=== PATIENT | female | born 1975 | race Caucasian/White ===

== ENCOUNTER 2016-06-27 12:12 | Emergency (ER) | payer OTHER ==
[~2016-06-27] VITALS: Ht 157.5 cm; Wt 70.8 kg
[~2016-06-27 12:12] MED LIST: COZAAR25 MG PO; FERROUS SULFAT325 MG PO; IBUPROFEN600 M1 PO; MOTRIN800 MG PO; ORETIC25 MG PO; TAMOXIFEN CITRA20 MG PO; VICODIN 5/500 M1 TAB PO; ZOCOR20 MG PO
[2016-06-27 12:58] VITALS: BP 112/71
--- NOTE | 2016-06-27 15:11 | NUR ---
Patient ambulated to bed 08.
--- NOTE | 2016-06-27 15:13 | NUR ---
PATIENT PRESENTS TO ED DUE TO DIZZINESS AND LEFT UPPER BACK PAIN X4 DAYS--INCREASED FATIGUE, NAUSEA/VOMITING HX BREAST,LOWER BACK CA-HX LEFT PARTIAL MASTECTOMY,CHEMO EVERY MONTH.DENIES DIARRHEA. SKIN IS PINK/WARM/DRY; AAOX4 WITH EVEN AND STEADY GAIT; LUNGS CLEAR BL; HR EVEN AND REGULAR; PT DENIES ANY FEVER, CP, SOB, OR COUGH AT THIS TIME; PATIENT STATES PAIN OF 8/10 AT THIS TIME,BACK PAIN; PATIENT POSITIONED FOR COMFORT; HOB ELEVATED; BEDRAILS UP X2; BED DOWN. ER MD MADE AWARE OF PT STATUS.
--- NOTE | 2016-06-27 15:26 | NUR ---
NOTED PT WITH RIGHT CHEST SIMI CATH
--- NOTE | 2016-06-27 15:41 | NUR ---
Dr. Tuttle evaluating patient at bedside.
[2016-06-27] MEDS ORDERED: IBUPROFEN 800 MG TAB PO ONE (15:50)
[2016-06-27] MEDS ORDERED: NACL 0.9% 1,000 ML IV ONE ×2 (15:50→18:10)
[2016-06-27] MEDS ORDERED: ONDANSETRON 4 MG/2 ML VIAL IVP ONE (15:50)
--- NOTE | 2016-06-27 16:21 | NUR ---
XRAY AT BEDSIDE
--- NOTE | 2016-06-27 16:25 | NUR ---
PT AAO, IVF ONGOING VIA PERIPHERAL LINE, SKIN WARM TO TOUCH RESP. EVEN AND UNLABORED
--- NOTE | 2016-06-27 17:32 | NUR ---
ASSISTED TO THE BATHROOM PT AAO, PT SAYS I FEEL A LIITLE BIT DIZZY, NO PAIN NOTED AT THIS TIME.
--- NOTE | 2016-06-27 18:53 | NUR ---
PT SLEEPING AT THIS TIME, IVF ONGOING, WELL TOLERATED.
--- NOTE | 2016-06-27 19:18 | NUR ---
Pt report given to KAITLYNN JOYNER. Transfer of care at this time.
--- NOTE | 2016-06-27 19:19 | NUR ---
RECEIVED REPORT FROM DAY NURSE YONNY RN FOR TRANSFER OF CARE.
[2016-06-27 19:51] VITALS: BP 112/62
--- NOTE | 2016-06-27 19:52 | NUR ---
Patient discharged with v/s stable. Written and verbal after care instructions given and explained. Patient alert, oriented and verbalized understanding of instructions. Ambulatory with steady gait. All questions addressed prior to discharge. ID band removed. Patient advised to follow up with PMD. Rx of ZOFRAN ODT given. Patient educated on indication of medication including possible reaction and side effects. Opportunity to ask questions provided and answered.
== END 2016-06-27 19:52 | disposition home or self-care (01) ==
LOC: MED 12:13
DX: D64.9 Anemia, unspecified (principal); R53.1 Weakness; M25.512 Pain in left shoulder; M54.6 Pain in thoracic spine; J45.909 Unspecified asthma, uncomplicated; E78.00 Pure hypercholesterolemia, unspecified; I10 Essential (primary) hypertension; Z90.12 Acquired absence of left breast and nipple; Z88.5 Allergy status to narcotic agent; Z79.899 Other long term (current) drug therapy
CPT/HCPCS: 36415; 71010; 80053; 81002; 81025; 83880; 84484; 85025; 85610; 85730; 93005; 96361; 96374; 99285; J2405; J7030; Q0092

== ENCOUNTER 2016-09-25 22:28 | Emergency (ER) | payer OTHER ==
[~2016-09-25] VITALS: Ht 157.5 cm; Wt 72.6 kg
[~2016-09-25 22:28] MED LIST changes: -COZAAR25 MG PO; -FERROUS SULFAT325 MG PO; +IBUP-2213 PO; -IBUPROFEN600 M1 PO; +LOSA25TA14 PO; -MOTRIN800 MG PO; +ORE25 PO; -ORETIC25 MG PO; +SIMV20TA1 PO; +TAMO20TA3 PO; -TAMOXIFEN CITRA20 MG PO; -VICODIN 5/500 M1 TAB PO; -ZOCOR20 MG PO
[2016-09-25 22:58] VITALS: BP 137/91
--- NOTE | 2016-09-25 23:27 | NUR ---
PT TAKEN TO BED 8
--- NOTE | 2016-09-25 23:32 | NUR ---
41 Y/O F W/C/O RASH TO BILATERAL INNER TIGHS AND ARMS, BACK AND STOMACH. PT STATES HAS A HX OF LYMPHOMA, SPINAL CORD CANCER AND BREAST CANCER. ER MADE AWARE.
--- NOTE | 2016-09-25 23:40 | NUR ---
Dr. Groves evaluating patient at bedside.
[2016-09-25] MEDS ORDERED: CLINDAMYCIN 150 MG CAP PO ONE (23:50)
[2016-09-26 00:09] VITALS: BP 130/92
--- NOTE | 2016-09-26 00:09 | NUR ---
Patient discharged with v/s stable. Written and verbal after care instructions given and explained. Patient alert, oriented and verbalized understanding of instructions. Ambulatory with steady gait. All questions addressed prior to discharge. ID band removed. Patient advised to follow up with PMD OR RETURN TO ER IF CONDITION WORSENS. Rx of HYDROCORTISONE, AND CLINDAMYCIN given. Patient educated on indication of medication including possible reaction and side effects. Opportunity to ask questions provided and answered.
== END 2016-09-26 00:09 | disposition home or self-care (01) ==
LOC: MED 22:28
DX: L03.116 Cellulitis of left lower limb (principal); L03.115 Cellulitis of right lower limb; L03.114 Cellulitis of left upper limb; J45.909 Unspecified asthma, uncomplicated; I10 Essential (primary) hypertension; Z88.6 Allergy status to analgesic agent; Z88.2 Allergy status to sulfonamides; Z85.3 Personal history of malignant neoplasm of breast; Z85.830 Personal history of malignant neoplasm of bone
CPT/HCPCS: 99283

== ENCOUNTER 2016-10-03 20:40 | Emergency (ER) | payer OTHER ==
[~2016-10-03] VITALS: Ht 157.5 cm; Wt 71.7 kg
[~2016-10-03 20:40] MED LIST changes: +COZAAR25 MG PO; +FERROUS SULFAT325 MG PO; -IBUP-2213 PO; +IBUPROFEN600 M1 PO; -LOSA25TA14 PO; +MOTRIN800 MG PO; -ORE25 PO; +ORETIC25 MG PO; -SIMV20TA1 PO; -TAMO20TA3 PO; +TAMOXIFEN CITRA20 MG PO; +VICODIN 5/500 M1 TAB PO; +ZOCOR20 MG PO
[2016-10-03 20:48] VITALS: BP 160/99
--- NOTE | 2016-10-03 23:42 | NUR ---
PATIENT TO ER BED 6.
--- NOTE | 2016-10-03 23:42 | NUR ---
PT IS 41/F BIB SELF TO ED WITH C/O CHEST PAIN ON AND OFF FOR 3 DAYS AND WITH HIGH BP. PT STATES MED HX OF HTN, BREAST CANCER. DENIES N/V/D; SKIN IS PINK/WARM/DRY; AAOX4 WITH EVEN AND STEADY GAIT; LUNGS CLEAR BL; HR EVEN AND REGULAR; PT DENIES ANY FEVER, SOB, OR COUGH AT THIS TIME; PATIENT STATES PAIN OF 8/10 AT THIS TIME; VSS; PATIENT POSITIONED FOR COMFORT; HOB ELEVATED; BEDRAILS UP X2; BED DOWN. ER MD MADE AWARE OF PT STATUS.
--- NOTE | 2016-10-03 23:45 | NUR ---
PATIENT BEING EVALUATED BY DR. CASTILLO.
[2016-10-04] MEDS ORDERED: LISINOPRIL 10 MG TAB ONE (00:22)
[2016-10-04 00:32] VITALS: BP 132/88
--- NOTE | 2016-10-04 00:32 | NUR ---
Patient discharged with v/s stable. Written and verbal after care instructions given and explained. Patient alert, oriented and verbalized understanding of instructions. Ambulatory with steady gait. All questions addressed prior to discharge. ID band removed. Patient advised to follow up with PMD. Rx of LISINOPRIL given. Patient educated on indication of medication including possible reaction and side effects. Opportunity to ask questions provided and answered.
[2016-10-04] MEDS ORDERED: LISINOPRIL 20 MG TAB PO SCH (09:00)
== END 2016-10-04 00:32 | disposition home or self-care (01) ==
LOC: MED 20:40
DX: I10 Essential (primary) hypertension (principal); J45.909 Unspecified asthma, uncomplicated; Z85.3 Personal history of malignant neoplasm of breast; Z85.830 Personal history of malignant neoplasm of bone; Z88.2 Allergy status to sulfonamides; Z88.6 Allergy status to analgesic agent

== ENCOUNTER 2016-10-28 20:39 | Emergency (ER) | payer OTHER ==
[~2016-10-28] VITALS: Ht 157.5 cm; Wt 71.7 kg
[~2016-10-28 20:39] MED LIST changes: -COZAAR25 MG PO; -FERROUS SULFAT325 MG PO; +IBUP-2213 PO; -IBUPROFEN600 M1 PO; +LOSA25TA14 PO; -MOTRIN800 MG PO; +ORE25 PO; -ORETIC25 MG PO; +SIMV20TA1 PO; +TAMO20TA3 PO; -TAMOXIFEN CITRA20 MG PO; -VICODIN 5/500 M1 TAB PO; -ZOCOR20 MG PO
[2016-10-28 20:50] VITALS: BP 144/93
--- NOTE | 2016-10-28 21:29 | NUR ---
Patient to OF3.
--- NOTE | 2016-10-28 21:33 | NUR ---
PT BIB SELF C/O LOW BACK AND BURNING ON PAINFUL URINATION FOR 3 DAYS. PT DENIES N/V/D; SKIN IS INTACT, PINK/WARM/DRY; AAOX4, PERRL, WITH EVEN AND STEADY GAIT; LUNGS CLEAR BL, BREATHING UNLABORED; HR EVEN AND REGULAR, BL PERIPHERAL PULSES PRESENT; BS ACTIVE X4, NO TENDERNESS TO PALPATION. PT DENIES ANY FEVER, CP, SOB, OR COUGH AT THIS TIME; PT STATES 5/10 PAIN AT THIS TIME; VSS; PATIENT POSITIONED FOR COMFORT; HOB ELEVATED; BEDRAILS UP X2; BED DOWN.
--- NOTE | 2016-10-28 21:42 | NUR ---
SHAWNA Wisdom evaluating patient.
[2016-10-28 22:23] LABS: APPEARANCE,URINE CLOUDY (CLEAR); BILIRUBIN,URINE NEGATIVE (NEGATIVE); BLOOD, URINE 3+ (NEGATIVE); COLOR,URINE YELLOW (YELLOW); LEUKOCYTE ESTERASE ,URINE TRACE (NEGATIVE); NITRITE, URINE NEGATIVE (NEGATIVE); PROTEIN,URINE 2+ (NEGATIVE); UGLUCOSE NEGATIVE (NEGATIVE); UROBILINOGEN,URINE 0.2 EU/dL (0.2 - 1)
--- NOTE | 2016-10-28 22:25 | NUR ---
Patient discharged with v/s stable. Written and verbal after care instructions given and explained. Patient alert, oriented and verbalized understanding of instructions. Ambulatory with steady gait. All questions addressed prior to discharge. ID band removed. Patient advised to follow up with PMD. Rx of PYRIDIUM 200MG, NITROFURANTOIN BID given. Patient educated on indication of medication including possible reaction and side effects. Opportunity to ask questions provided and answered.
[2016-10-28 22:31] VITALS: BP 132/88
[2016-10-28 22:51] LABS: BACTERIA,URINE 2+ /HPF (None Seen); RBC,URINE TOO NUMEROUS TO COUN /HPF (0-5); SQUAMOUS EPITHELIAL CELL,UR 0-3 /LPF (0-3 (FEW))
== END 2016-10-28 22:25 | disposition home or self-care (01) ==
LOC: MED 20:39
DX: N39.0 Urinary tract infection, site not specified (principal); J45.909 Unspecified asthma, uncomplicated; I10 Essential (primary) hypertension; Z85.830 Personal history of malignant neoplasm of bone; Z88.2 Allergy status to sulfonamides; Z88.5 Allergy status to narcotic agent
CPT/HCPCS: 81001; 87086; 87186; 99284

== ENCOUNTER 2017-01-16 13:17 | Emergency (ER) | payer OTHER ==
[~2017-01-16] VITALS: Ht 157.5 cm; Wt 71.2 kg
[2017-01-16 13:19] VITALS: BP 141/95
--- NOTE | 2017-01-16 13:44 | NUR ---
AMBULATED TO ER BED 7
--- NOTE | 2017-01-16 13:50 | NUR ---
41/F PRESENT TO ER C/O UNPROVOKED LEFT SIDED CHEST PAIN 9/10 BURNING PRESSURE TYPE , RADIATING TO LEFT SCAPULA X 2 DAYS---CONSTANT, UNRELIEVED BY MOTRIN. PT STATES RECEIVED X 2 CHEMO MEDS YESTERDAY---3 DAYS AGO RECEIVED ANOTHER CHEMO. PT STATES SHE HAS HX---LEFT BREAST CA REMISSION 2014, LUMBAR CA 08/2014 DX, HTN, HYPERLIPIDEMIA. RX---CHEMO THERAPY. AAOx4, PERRLA, BREATHING EVEN AND UNLABORED. ERMD NOTIFIED OF PATIENT STATUS.
[2017-01-16] MEDS ORDERED: KETOROLAC 30 MG/ML VIAL IVP ONE (14:00)
--- NOTE | 2017-01-16 14:00 | NUR ---
Patient being evaluated by physician at bedside.
[2017-01-16 14:39] LABS: BASOPHILS # (AUTO) 0.2 K/uL (0.00-0.22); EOSINOPHILS # (AUTO) 0.2 K/uL (0-0.4); HEMATOCRIT 40.6 % (36-48); HEMOGLOBIN 13.4 g/dL (12.0-16.0); LYMPHOCYTES # (AUTO) 0.9 K/uL (2.5-16.5); MEAN CORPUSCULAR HEMOGLOBIN 30 pg (27-31); MEAN CORPUSCULAR HGB CONC 33 g/dL (33-37); MEAN CORPUSCULAR VOLUME 90 fL (80-94); MONOCYTES # (AUTO) 0.3 K/uL (0.8-1.0); NEUTROPHILS # (AUTO) 2.9 K/uL (1.8-7.7); PLATELET COUNT (AUTO) 263 K/uL (140-450); RED BLOOD CELL COUNT(AUTO) 4.51 MIL/uL (4.20-5.40); RED CELL DISTRIBUTION WIDTH 13.5 % (11.6-13.7); WHITE BLOOD COUNT (AUTO) 4.5 K/uL (4.8-10.8)
[2017-01-16 14:58] LABS: ANION GAP 9.6 (8-16); CARBON DIOXIDE 29.8 mmol/L (21-32); CREATININE 0.6 mg/dL (0.6-1.3); POTASSIUM 3.4 mmol/L (3.5-5.1)
[2017-01-16 15:01] LABS: PROTHROMBIN TIME 9.7 secs (10.8-13.4)
[2017-01-16 15:04] LABS: ALBUMIN 3.8 g/dL (3.4-5.0); TOTAL BILIRUBIN 0.3 mg/dL (0.0-1.0)
--- NOTE | 2017-01-16 15:50 | NUR ---
IV removed, catheter intact and site benign. Applied folded 4x4 gauze and tape to stop bleeding.
--- NOTE | 2017-01-16 15:52 | NUR ---
Patient discharged with v/s stable. Written and verbal after care instructions given and explained. Patient alert, oriented and verbalized understanding of instructions. Ambulatory with steady gait. All questions addressed prior to discharge. ID band removed. Patient advised to follow up with PMD. Rx of TRAMADOL 50MG TABLET given. Patient educated on indication of medication including possible reaction and side effects. Opportunity to ask questions provided and answered.
[2017-01-16 15:53] VITALS: BP 133/78
== END 2017-01-16 15:53 | disposition home or self-care (01) ==
LOC: MED 13:17
DX: R07.89 Other chest pain (principal); J45.909 Unspecified asthma, uncomplicated; I10 Essential (primary) hypertension; Z88.2 Allergy status to sulfonamides; Z88.5 Allergy status to narcotic agent; Z85.3 Personal history of malignant neoplasm of breast
CPT/HCPCS: 36415; 71010; 80053; 83880; 84484; 85025; 85610; 85730; 93005; 96374; 99285; J1885; Q0092

== ENCOUNTER 2017-02-27 08:49 | Inpatient (IN) | payer OTHER ==
[~2017-02-27] VITALS: Ht 157.5 cm; Wt 72.3 kg
[2017-02-27 08:52] VITALS: BP 156/82
--- NOTE | 2017-02-27 09:05 | NUR ---
PATIENT PRESENTS TO ED WITH c/o intermittent rt chest pain radiating to back x yesterday;8/10 pain scale;feels nauseous but denies vomitting hx; HTN/LT Breast CA stage 4;last chemo= february 16 rx; lisinopril 20 mg;simvastatin 20 mg;phenazopyridine 200 mg;ciprofloxacin 500 mg recent UTI dx; DENIES V/D; SKIN IS PINK/WARM/DRY; AAOX4 WITH EVEN AND STEADY GAIT; LUNGS CLEAR BL; HR EVEN AND REGULAR; PT DENIES ANY FEVER, CP, SOB, OR COUGH AT THIS TIME; PATIENT STATES PAIN OF 8/10 AT THIS TIME; VSS; PATIENT POSITIONED FOR COMFORT; HOB ELEVATED; BEDRAILS UP X2; BED DOWN. ER MD MADE AWARE OF PT STATUS.
--- NOTE | 2017-02-27 09:07 | NUR ---
DR ART EVALUATING AAO PT AT BEDSIDE
[2017-02-27] MEDS ORDERED: ASPIRIN 81 MG TAB.CHEW PO ONE (09:15)
[2017-02-27] MEDS ORDERED: NITROGLYCERIN 0.4 MG TAB SL ONE (09:15)
[2017-02-27 09:33] LABS: BASOPHILS # (AUTO) 0.1 K/uL (0.00-0.22); BASOPHILS % (AUTO) 2.5 % (0.0-2.0); EOSINOPHILS # (AUTO) 0.2 K/uL (0-0.4); EOSINOPHILS % (AUTO) 3.9 % (0.0-4.0); HEMATOCRIT 38.7 % (36-48); HEMOGLOBIN 12.9 g/dL (12.0-16.0); LYMPHOCYTES # (AUTO) 1.1 K/uL (2.5-16.5); LYMPHOCYTES % (AUTO) 23.6 % (20.5-51.1); MEAN CORPUSCULAR HEMOGLOBIN 29 pg (27-31); MEAN CORPUSCULAR HGB CONC 33 g/dL (33-37); MEAN CORPUSCULAR VOLUME 88 fL (80-94); MONOCYTES # (AUTO) 0.3 K/uL (0.8-1.0); MONOCYTES % (AUTO) 6.8 % (1.7-9.3); NEUTROPHILS # (AUTO) 2.9 K/uL (1.8-7.7); NEUTROPHILS % (AUTO) 63.2 % (42.2-75.2); PLATELET COUNT (AUTO) 285 K/uL (140-450); RED BLOOD CELL COUNT(AUTO) 4.37 MIL/uL (4.20-5.40); RED CELL DISTRIBUTION WIDTH 13.6 % (11.6-13.7); WHITE BLOOD COUNT (AUTO) 4.6 K/uL (4.8-10.8)
[2017-02-27 09:43] LABS: APPEARANCE,URINE HAZY (CLEAR); BILIRUBIN,URINE NEGATIVE (NEGATIVE); BLOOD, URINE NEGATIVE (NEGATIVE); COLOR,URINE ORANGE (YELLOW); LEUKOCYTE ESTERASE ,URINE NEGATIVE (NEGATIVE); NITRITE, URINE POSITIVE (NEGATIVE); PH,URINE 5.5 (5.0-9.0); UGLUCOSE NEGATIVE (NEGATIVE)
[2017-02-27 09:47] LABS: ANION GAP 10.9 (8-16); CARBON DIOXIDE 25.9 mmol/L (21-32); CREATININE 0.6 mg/dL (0.6-1.3); POTASSIUM 3.8 mmol/L (3.5-5.1)
[2017-02-27 09:50] LABS: PROTHROMBIN TIME 9.8 secs (10.8-13.4)
[2017-02-27 09:53] LABS: ALBUMIN 3.7 g/dL (3.4-5.0); TOTAL BILIRUBIN 0.3 mg/dL (0.0-1.0)
[2017-02-27 10:07] LABS: RBC,URINE 0-5 (RARE) /HPF (0-5); WBC,URINE 0-5 (RARE) /HPF (0-5)
[2017-02-27] MEDS: NACL 0.9% 1,000 ML IV SCH ×2 (10:54→13:08)
[2017-02-27] MEDS ORDERED: ACETAMINOPHEN 325 MG TAB PO PRN (10:55)
[2017-02-27] MEDS ORDERED: ONDANSETRON 4 MG/2 ML VIAL IVP PRN (10:55)
[2017-02-27] MEDS ORDERED: LISI-420 PO (11:07)
--- NOTE | 2017-02-27 11:19 | NUR ---
Patient will be admitted to care of DR ZARATE. Admited to TELE. Will go to room 113. Belongings list completed. Report to KAITLYNN VALDEZ.
--- NOTE | 2017-02-27 11:19 | NUR ---
DR ANGEL INTERVIEWING AAO PT AT BEDSIDE
[2017-02-27 11:21] LABS: BARBITURATE, URINE NEG. ng/ml (NEG <=200); BENZODIAZEPINE, URINE NEG. ng/mL (NEG <=200); CANNABINOID, URINE NEG. ng/mL (NEG <=50); COCAINE, URINE NEG. ng/mL (NEG <=300); OPIATE, URINE NEG. ng/mL (NEG <=2000); PHENCYCLIDINE SCREEN,URINE NEG. ng/mL (NEG <=25)
[2017-02-27 11:32] LABS: FREE T4 (FREE THYROXINE) 0.91 ng/dL (0.76-1.46); MAGNESIUM 1.9 mg/dL (1.8-2.4); THYROID STIMULATING HORMONE 2.76 uIU/mL (0.34-3.74)
[2017-02-27] MEDS ORDERED: NITROGLYCERIN 0.4 MG TAB SL PRN ×2 (11:40→13:05)
[2017-02-27] MEDS ORDERED: HYDROcodone/APAP 7.5/325 MG 1 TAB PO PRN (12:00)
[2017-02-27] MEDS ORDERED: LISINOPRIL 20 MG TAB PO SCH (12:00)
--- NOTE | 2017-02-27 12:10 | NUR ---
PATIENT ARRIVED ON UNIT VIA GURNEY. ABLE TO AMBULATE AND TRANSFERRED SELF FROM [facility] INTO BED WITH STABLE GAIT. IN STABLE CONDITION. NO DISTRESS NOTED. ORIENTED PATIENT TO ROOM, DENIES ANY CHEST PAIN AT THE MOMENT. WEDDING CAKE DESIGNER PLACED ON PATIENT, ID BANDS PLACED, MRSA OF NARES TAKEN PER PROTOCOL, IV ON RIGHT HAND INTACT, PATENT, AND IV FLUIDS STARTED PER MD ORDERS. DR. ANGEL AT BEDSIDE SPEAKING WITH PATIENT REGARDING PLAN OF CARE. AAOX4, CALM, COOPERATIVE. SKIN INTEGRITY INTACT, NO WOUNDS/LESIONS NOTED THROUGHOUT BODY. SKIN COLOR APPROPRIATE TO ETHNICITY, SKIN TEMPERATURE WARM TO TOUCH. LUNGS CTA ON ALL LOBES. SAFETY MEASURES IN PLACE, CALL LIGHT WITHIN REACH, BED RAILS UPX2, WILL CONTINUE TO MONITOR.
[2017-02-27 12:15] VITALS: BP 140/79
--- NOTE | 2017-02-27 13:00 | NUR ---
PATIENT SITTING IN BED WATCHING TV. NO DISTRESS NOTED. DENIES ANY PAIN. RESPIRATIONS EVEN, UNLABORED, ON ROOM AIR. IV PATENT, INTACT AND INFUSING. MEDICATIONS DUE GIVEN. PATIENT AMBULATED TO BATHROOM INDEPENDENTLY AND BACK TO BED WITH STEADY GAIT, NO PROBLEMS NOTED. NO BP, PUNCTURE BANDS PLACED ON PATIENT'S LEFT ARM AND SIGNS POSTED DUE TO LEFT BREAST CA S/P PARTIAL MASTECTOMY. SAFETY MEASURES IN PLACE, CALL LIGHT WITHIN REACH. WILL CONTINUE TO MONITOR.
[2017-02-27] MEDS: LEVOFLOXACIN 250 MG/D5 PREMIX 50 ML IV SCH (13:58)
--- NOTE | 2017-02-27 14:50 | NUR ---
PATIENT SITTING IN BED TALKING WITH FAMILY MEMBER ON THE PHONE. NO DISTRESS NOTED. HAS 2/10 CHEST PAIN PRESSURE THAT IS WNL, REFUSES PAIN MEDICATION AT THIS TIME. SAFETY MEASURES IN PLACE, CALL LIGHT WITHIN REACH. WILL CONTINUE TO MONITOR.
[2017-02-27 16:00] VITALS: BP 110/71
--- NOTE | 2017-02-27 17:37 | NUR ---
CHECKED ON PT IN ROOM. IS AT BEDSIDE. PT IS SITTING UP IN BED WATCHING TV. DENIES CHEST PAIN. RESTRICTED EXTREMITY ARMBAND APPLIED TO LEFT ARM AND SIGNS POSTED DUE TO HX OF LEFT BREAST CANCER. NO COMPLAINTS AT THIS TIME. BED IN LOW POSITION. CALL LIGHT WITHIN REACH. WILL CONTINUE TO MONITOR.
--- NOTE | 2017-02-27 19:25 | NUR ---
GAVE REPORT TO LOG WASHER NURSE. PATIENT IN STABLE CONDITION.
--- NOTE | 2017-02-27 19:35 | NUR ---
RECEIVED REPORT FROM DAY RN, PATIENT RESTING IN BED AND TALKING WITH HER , NO S/S OF DISTRESS NOTED, RESPIRATION EVEN AND UNLABORED, IV PATENT AND INTACT, INFUSING NS AT 50ML/HR, PLAN OF CARE DISCUSSED, PATIENT VERBALIZED UNDERSTANDING. CALL LIGHT WITHIN REACH, SAFETY MEASURE ENSURED ,WILL CONTINUE TO MONITOR.
--- NOTE | 2017-02-27 19:50 | NUR ---
PATIENT WALKED IN THE HALLWAY WITH HER . PATIENT IS BACK IN BED, AT THIS TIME. WILL CONTINUE TO MONITOR.
[2017-02-27 20:00] VITALS: BP 110/70
[2017-02-27] MEDS: SIMVASTATIN 20 MG TAB PO SCH (20:47)
[2017-02-27] MEDS: DOCUSATE SODIUM 100 MG GELCAP PO SCH (20:47)
[2017-02-27] MEDS: METOPROLOL 25 MG TAB PO SCH (20:48)
--- NOTE | 2017-02-27 20:50 | NUR ---
DUE MEDICATION GIVEN, PATIENT TOLERATED WELL. WILL CONTINUE TO MONITOR.
--- NOTE | 2017-02-27 22:30 | NUR ---
PATIENT STATED THE ROOM TEMP WAS TOO COLD, ADJUSTED THE TEMP FOR HER, NO S/S OF DISTRESS NOTED, RESPIRATION EVEN AND UNLABORED, CALL LIGHT WITHIN REACH, SAFETY MEASURE ENSURED, WILL CONTINUE TO MONITOR.
[2017-02-28] VITALS (7 sets, daily range): BP systolic 92–123; BP diastolic 67–78
--- NOTE | 2017-02-28 00:30 | NUR ---
PATIENT ASLEEP IN BED, NO S/S OF DISTRESS NOTED, RESPIRATION EVEN AND UNLABORED, VITAL SIGNS WITH IN NORMAL RANGE, CALL LIGHT WITHIN REACH, SAFETY MEASURE ENSURED, WILL CONTINUE TO MONITOR.
--- NOTE | 2017-02-28 02:32 | NUR ---
PATIENT IS SLEEPING, NO S/S OF ACUTE DISTRESS NOTED, RESPIRATION EVEN AND UNLABORED, WILL CONTINUE TO MONITOR.
--- NOTE | 2017-02-28 04:01 | NUR ---
NO CHANGE IN CONDITION, PATIENT IS SLEEPING, RESPIRATION EVEN AND UNLABORED, NO S/S OF DISTRESS NOTED, WILL CONTINUE TO MONITOR.
[2017-02-28 05:58] LABS: BASOPHILS # (AUTO) 0.1 K/uL (0.00-0.22); BASOPHILS % (AUTO) 2.2 % (0.0-2.0); EOSINOPHILS # (AUTO) 0.2 K/uL (0-0.4); EOSINOPHILS % (AUTO) 4.9 % (0.0-4.0); HEMATOCRIT 40.7 % (36-48); HEMOGLOBIN 13.4 g/dL (12.0-16.0); LYMPHOCYTES % (AUTO) 22.3 % (20.5-51.1); MEAN CORPUSCULAR HEMOGLOBIN 30 pg (27-31); MEAN CORPUSCULAR HGB CONC 33 g/dL (33-37); MEAN CORPUSCULAR VOLUME 90 fL (80-94); MONOCYTES # (AUTO) 0.5 K/uL (0.8-1.0); MONOCYTES % (AUTO) 10.3 % (1.7-9.3); NEUTROPHILS # (AUTO) 2.9 K/uL (1.8-7.7); NEUTROPHILS % (AUTO) 60.3 % (42.2-75.2); PLATELET COUNT (AUTO) 322 K/uL (140-450); RED BLOOD CELL COUNT(AUTO) 4.55 MIL/uL (4.20-5.40); RED CELL DISTRIBUTION WIDTH 13.4 % (11.6-13.7); WHITE BLOOD COUNT (AUTO) 4.7 K/uL (4.8-10.8)
[2017-02-28 06:14] LABS: ANION GAP 8.1 (8-16); CARBON DIOXIDE 29.2 mmol/L (21-32); CREATININE 0.6 mg/dL (0.6-1.3); POTASSIUM 4.3 mmol/L (3.5-5.1)
[2017-02-28 06:23] LABS: MAGNESIUM 1.9 mg/dL (1.8-2.4); PHOSPHORUS 3.3 mg/dL (2.5-4.9)
[2017-02-28] MEDS: PANTOPRAZOLE 40 MG TABEC PO SCH (06:39)
[2017-02-28] MEDS: NACL 0.9% 1,000 ML IV SCH (06:41)
--- NOTE | 2017-02-28 06:45 | NUR ---
DUE MEDICATION GIVEN, PATIENT TOLERATED WELL. CALL LIGHT WITHIN REACH, SAFETY MEASURE ENSURED, WILL CONTINUE TO MONITOR.
--- NOTE | 2017-02-28 07:18 | NUR ---
ASSUMED CONTINUITY OF CARE. NO SIGNS AND SYMPTOMS OF ACUTE DISTRESS NOTED. INITIAL ASSESSMENT DONE. PT. -WILL ON BEDSIDE. EXPLAINED DIAGNOSIS, PLAN OF CARE, PAIN MANAGEMENT TEACHING, USE OF CALL LIGHT/BED/TV/BATHROOM. VERBALIZED UNDERSTANDING. CALL LIGHT WITHIN REACH.
--- NOTE | 2017-02-28 07:36 | NUR ---
ENDORSED PLAN OF CARE TO DAY RN. PATIENT RESTING IN BED, NO S/S OF DISTRESS, RESPIRATION EVEN AND UNLABORED.
--- NOTE | 2017-02-28 07:50 | NUR ---
Patient's Plan of Care was discussed and reviewed with ADMINISTRATIVE FELLOW: Luis M VILLAVICENCIO
[2017-02-28] MEDS: ASPIRIN 81 MG TAB.CHEW PO SCH (08:38)
[2017-02-28] MEDS: LACTOBACILLUS RHAMNOSUS GG 1 EACH CAP PO SCH (08:38)
[2017-02-28] MEDS: DOCUSATE SODIUM 100 MG GELCAP PO SCH ×2 (08:38→20:35)
[2017-02-28] MEDS: METOPROLOL 25 MG TAB PO SCH ×2 (08:39→20:35)
[2017-02-28] MEDS: LISINOPRIL 20 MG TAB PO SCH (08:39)
--- NOTE | 2017-02-28 09:40 | NUR ---
PATIENT HAS BEEN SCREENED AND CATEGORIZED MODERATE RISK. PATIENT WILL BE SEEN WITHIN 3-5 DAYS OF ADMISSION. 03/02/17 TO 03/04/[address]
--- NOTE | 2017-02-28 10:13 | NUR ---
DR. SERRATO, RESIDENTS MD, AND CHARGE NURSE MADE THEIR ROUNDS AND SPOKE TO PT. AND PT. AILIN SANTANA.
[2017-02-28] MEDS ORDERED: MAGNESIUM OXIDE 400 MG TAB PO SCH (10:45)
[2017-02-28] MEDS: LEVOFLOXACIN 250 MG/D5 PREMIX 50 ML IV SCH (11:17)
--- NOTE | 2017-02-28 12:00 | NUR ---
VITALS SIGNS STABLE. NO C/O PAIN. WILL MONITOR.
--- NOTE | 2017-02-28 19:18 | NUR ---
BEDSIDE REPORT GIVEN TO ARCADIO BALBUENA. IVF INFUSING WELL. IN STABLE CONDITION.
--- NOTE | 2017-02-28 19:22 | NUR ---
RECEIVED REPORT FROM DAY RN. PATIENT RESTING IN BED AND AT THE BEDSIDE. NO S/S OF ACUTE DISTRESS NOTED, RESPIRATION EVEN AND UNLABORED, IV PATENT AND INTACT, INFUSING NS AT 50ML/HR, PLAN OF CARE DISCUSSED, PATIENT VERBALIZED UNDERSTANDING. CALL LIGHT WITHIN REACH, SAFETY MEASURE ENSURED, WILL CONTINUE TO MONITOR.
[2017-02-28] MEDS: SIMVASTATIN 20 MG TAB PO SCH (20:35)
--- NOTE | 2017-02-28 20:41 | NUR ---
DUE MEDICATION GIVEN, PATIENT TOLERATED WELL. NO S/S OF ACUTE DISTRESS NOTED, ALL NEEDS ATTENDED, CALL LIGHT WITHIN REACH, SAFETY MEASURE ENSURED, WILL CONTINUE TO MONITOR.
--- NOTE | 2017-02-28 22:35 | NUR ---
PATIENT ASLEEP IN BED, NO S/S OF DISTRESS NOTED, RESPIRATION EVEN AND UNLABORED, CALL LIGHT WITHIN REACH, SAFETY MEASURE ENSURED, WILL CONTINUE TO MONITOR.
[2017-03-01] VITALS: BP 103/69
--- NOTE | 2017-03-01 00:12 | NUR ---
NO CHANGE IN CONDITION, NO S/S OF DISTRESS NOTED, RESPIRATION EVEN AND UNLABORED, VITAL SIGNS WITH IN NORMAL RANGE, CALL LIGHT WITHIN REACH, SAFETY MEASURE ENSURED, WILL CONTINUE TO MONITOR.
--- NOTE | 2017-03-01 02:46 | NUR ---
PATIENT ASLEEP IN BED, NO S/S OF DISTRESS NOTED, RESPIRATION EVEN AND UNLABORED, CALL LIGHT WITHIN REACH, SAFETY MEASURE ENSURED, WILL CONTINUE TO MONITOR.
[2017-03-01] MEDS: NACL 0.9% 1,000 ML IV SCH (03:01)
[2017-03-01 04:00] VITALS: BP 111/62
--- NOTE | 2017-03-01 04:42 | NUR ---
NO CHANGE IN CONDITION. PATIENT IS SLEEPING, NO S/S OF DISTRESS NOTED, RESPIRATION EVEN AND UNLABORED, CALL LIGHT WITHIN REACH, SAFETY MEASURE ENSURED, WILL CONTINUE TO MONITOR.
--- NOTE | 2017-03-01 06:05 | NUR ---
PATIENT IS SLEEPING AT THIS TIME. RESPIRATION EVEN AND UNLABORED, CALL LIGHT WITHIN REACH, SAFETY MEASURE ENSURED ,WILL CONTINUE TO MONITOR.
[2017-03-01] MEDS: PANTOPRAZOLE 40 MG TABEC PO SCH (06:23)
[2017-03-01 06:36] LABS: BASOPHILS # (AUTO) 0.1 K/uL (0.00-0.22); BASOPHILS % (AUTO) 1.6 % (0.0-2.0); EOSINOPHILS # (AUTO) 0.2 K/uL (0-0.4); EOSINOPHILS % (AUTO) 4.4 % (0.0-4.0); HEMATOCRIT 36.3 % (36-48); HEMOGLOBIN 12.1 g/dL (12.0-16.0); LYMPHOCYTES % (AUTO) 19.5 % (20.5-51.1); MEAN CORPUSCULAR HEMOGLOBIN 29 pg (27-31); MEAN CORPUSCULAR HGB CONC 33 g/dL (33-37); MEAN CORPUSCULAR VOLUME 88 fL (80-94); MONOCYTES # (AUTO) 0.4 K/uL (0.8-1.0); MONOCYTES % (AUTO) 7.4 % (1.7-9.3); NEUTROPHILS # (AUTO) 3.4 K/uL (1.8-7.7); NEUTROPHILS % (AUTO) 67.1 % (42.2-75.2); PLATELET COUNT (AUTO) 269 K/uL (140-450); RED BLOOD CELL COUNT(AUTO) 4.14 MIL/uL (4.20-5.40); RED CELL DISTRIBUTION WIDTH 13.3 % (11.6-13.7); WHITE BLOOD COUNT (AUTO) 5.1 K/uL (4.8-10.8)
[2017-03-01 06:55] LABS: ANION GAP 9.3 (8-16); CARBON DIOXIDE 26.9 mmol/L (21-32); CREATININE 0.6 mg/dL (0.6-1.3); POTASSIUM 4.2 mmol/L (3.5-5.1)
--- NOTE | 2017-03-01 07:25 | NUR ---
ENDORSED PLAN OF CARE TO DAY RN, PATIENT IS IN STABLE CONDITION. NO S/S OF DISTRESS.
--- NOTE | 2017-03-01 07:26 | NUR ---
RECEIVED REPORT FROM LEAD TANK MECHANIC NURSE AT BEDSIDE FOR CONTINUITY OF CARE. PT IS AWAKE AND ORIENTED. INTRODUCED SELF AND UPDATED BOARD. PT'S IS AT BEDSIDE. PT DENIES CHEST PAIN. NO SIGNS OF DISTRESS. IV ON RIGHT WRIST 24G INFUSING NS @50ML/HR. BED IN LOW POSITION. CALL LIGHT WITHIN REACH. WILL CONTINUE WITH PLAN OF CARE AND MONITOR PT.
[2017-03-01 08:00] VITALS: BP 124/70
[2017-03-01] MEDS: LISINOPRIL 20 MG TAB PO SCH (08:55)
[2017-03-01] MEDS: DOCUSATE SODIUM 100 MG GELCAP PO SCH (08:56)
[2017-03-01] MEDS: LACTOBACILLUS RHAMNOSUS GG 1 EACH CAP PO SCH (08:56)
[2017-03-01] MEDS: ASPIRIN 81 MG TAB.CHEW PO SCH (08:56)
[2017-03-01] MEDS: METOPROLOL 25 MG TAB PO SCH (09:00)
--- NOTE | 2017-03-01 11:13 | NUR ---
PT STATED SHE WAS FEELING NAUSEOUS. ADMINISTERED ZOFRAN FOR NAUSEA. PROVIDED TEACHING ON MEDICATION AND SIDE EFFECTS. PT VERBALIZED UNDERSTANDING AND TOLERATED MED WELL. IS AT BEDSIDE. PT IS RESTING IN BED. WILL CONTINUE TO MONITOR.
[2017-03-01] MEDS: LEVOFLOXACIN 250 MG/D5 PREMIX 50 ML IV SCH (11:39)
[2017-03-01 12:00] VITALS: BP 127/74
--- NOTE | 2017-03-01 13:00 | NUR ---
CHECKED ON PT IN ROOM. PT IS SITTING UP IN BED WATCHING TV WITH . PT NO LONGER STATES FEELING NAUSEOUS. PAIN IS RELIEVED. PT FINISHED LUNCH TRAY. DENIES CHEST PAIN. NO OTHER COMPLAINTS AT THIS TIME. WILL CONTINUE TO MONITOR.
[2017-03-01] MEDS ORDERED: SIMV20TA1 PO (15:29)
[2017-03-01] MEDS ORDERED: IBUP200S18 PO (15:29)
[2017-03-01] MEDS ORDERED: LISI-420 PO (15:29)
--- NOTE | 2017-03-01 16:25 | NUR ---
PT D/C'D TO GO HOME. GAVE PT D/C INSTRUCTIONS AND PLAN TO SCHEDULE APPOINTMENT WITH PCP. GAVE TEACHING ON RX AND SIDE EFFECTS. PROVIDED WORK NOTE FROM . PT VERBALIZED TEACHING AND SIGNED FORMS. REMOVED IV CATHETER FROM RIGHT WRIST 24G. IV CATHETER TIP INTACT. APPLIED DRESSING AND PRESSURE TO SITE. NO BLEEDING NOTED. REMOVED ID BANDS AND TELE BOX. PT CHANGED INTO OWN CLOTHES AND LEFT WITH ALL PERSONAL BELONGINGS. LEFT UNIT VIA AMBULATION ACCOMPANIED BY RN AND SPOUSE. PT LEFT IN STABLE CONDITION TO GO HOME.
--- NOTE | 2017-03-02 09:59 | NUR ---
CM NOTE RETRO REVIEW FAXED TO [facility] [phone] OCTOBER # [phone]
== END 2017-03-01 16:25 | disposition home or self-care (01) | DRG 243 ==
LOC: MED 08:49 → MTU 10:54
PROVIDERS: ADMIT Family Medicine; ATTEND Family Medicine
DX: K21.9 Gastro-esophageal reflux disease without esophagitis (principal); C79.51 Secondary malignant neoplasm of bone; E87.8 Other disorders of electrolyte and fluid balance, not elsewhere classified; M94.0 Chondrocostal junction syndrome [Tietze]; C50.912 Malignant neoplasm of unspecified site of left female breast; I10 Essential (primary) hypertension; N39.0 Urinary tract infection, site not specified; Z88.6 Allergy status to analgesic agent; Z88.2 Allergy status to sulfonamides; E78.5 Hyperlipidemia, unspecified; E66.9 Obesity, unspecified; Z85.3 Personal history of malignant neoplasm of breast; J45.909 Unspecified asthma, uncomplicated; Z83.3 Family history of diabetes mellitus; Z82.49 Family history of ischemic heart disease and other diseases of the circulatory system; Z68.29 Body mass index [BMI] 29.0-29.9, adult; Z90.12 Acquired absence of left breast and nipple
CPT/HCPCS: 36415; 71010; 80048; 80053; 80305; 81001; 81025; 83036; 83690; 83735; 83880; 84100; 84439; 84443; 84484; 85025; 85379; 85610; 85730; 87081; 87086; 93005; 99285; J1956; J2405; J7030; Q0092

== ENCOUNTER 2017-09-08 15:58 | Emergency (ER) | payer OTHER ==
[~2017-09-08] VITALS: Ht 157.5 cm; Wt 70.8 kg
[~2017-09-08 15:58] MED LIST changes: -IBUP-2213 PO; +LISI-420 PO; -LOSA25TA14 PO; -ORE25 PO; -TAMO20TA3 PO
[2017-09-08 16:03] VITALS: BP 152/96
--- NOTE | 2017-09-08 16:13 | NUR ---
PT TAKEN BY WHEELCHAIR TO ER BED 02
--- NOTE | 2017-09-08 16:15 | NUR ---
42y/f c/o 02/17 intermittent "tingling" left sided chest pain radiating left shoulder and left side of body since yesterday 1500. Patient states she was at home sitting down when chest pain started. Patient also reports of dizziness sob and dry cough.
[2017-09-08] MEDS ORDERED: HYDROmorphone PFS 2 MG/ML SYR IVP ONE (16:20)
[2017-09-08] MEDS ORDERED: ONDANSETRON 4 MG/2 ML VIAL IVP ONE ×2 (16:20→18:10)
[2017-09-08 16:53] LABS: BASOPHILS % (AUTO) 0.6 % (0.0-2.0); EOSINOPHILS # (AUTO) 0.3 K/uL (0-0.4); EOSINOPHILS % (AUTO) 4.8 % (0.0-4.0); HEMATOCRIT 35.2 % (36-48); HEMOGLOBIN 11.9 g/dL (12.0-16.0); LYMPHOCYTES # (AUTO) 1.9 K/uL (2.5-16.5); LYMPHOCYTES % (AUTO) 28.8 % (20.5-51.1); MEAN CORPUSCULAR HEMOGLOBIN 30 pg (27-31); MEAN CORPUSCULAR HGB CONC 34 g/dL (33-37); MEAN CORPUSCULAR VOLUME 88.6 fL (80-94); MONOCYTES # (AUTO) 0.4 K/uL (0.8-1.0); MONOCYTES % (AUTO) 6.2 % (1.7-9.3); NEUTROPHILS % (AUTO) 59.6 % (42.2-75.2); PLATELET COUNT (AUTO) 281 K/uL (140-450); RED BLOOD CELL COUNT(AUTO) 3.98 MIL/uL (4.20-5.40); RED CELL DISTRIBUTION WIDTH 14.8 % (11.6-13.7); WHITE BLOOD COUNT (AUTO) 6.7 K/uL (4.8-10.8)
[2017-09-08 17:16] LABS: ALBUMIN 3.7 g/dL (3.4-5.0); ANION GAP 11.7 (8-16); CARBON DIOXIDE 27.1 mmol/L (21-32); CREATININE 0.6 mg/dL (0.6-1.3); POTASSIUM 3.8 mmol/L (3.5-5.1); TOTAL BILIRUBIN 0.2 mg/dL (0.0-1.0)
[2017-09-08] MEDS ORDERED: ONDANSETRON 4 MG ODT SL PRN (17:25)
[2017-09-08 17:28] LABS: PROTHROMBIN TIME 9.9 secs (10.8-13.4)
[2017-09-08] MEDS ORDERED: ONDANSETRON 4 MG/2 ML VIAL ONE (17:32)
[2017-09-08 18:47] VITALS: BP 140/84
== END 2017-09-08 18:47 | disposition home or self-care (01) ==
LOC: MED 15:58
DX: C50.912 Malignant neoplasm of unspecified site of left female breast (principal); C79.51 Secondary malignant neoplasm of bone; R07.89 Other chest pain; J45.909 Unspecified asthma, uncomplicated; I10 Essential (primary) hypertension; Z88.5 Allergy status to narcotic agent; Z88.2 Allergy status to sulfonamides; Z79.899 Other long term (current) drug therapy
CPT/HCPCS: 36415; 71045; 80053; 83880; 84484; 85025; 85610; 85730; 93005; 96374; 96375; 96376; 99285; J1170; J2405; Q0092

== ENCOUNTER 2018-04-03 20:01 | Emergency (ER) | payer OTHER ==
[~2018-04-03] VITALS: Ht 157.5 cm; Wt 68.0 kg
[2018-04-03 20:06] VITALS: BP 148/91
--- NOTE | 2018-04-03 20:10 | NUR ---
PT AMBULATED TO BED 3 WITH VSS.
[2018-04-03] MEDS ORDERED: CYCLOBENZAPRINE 10 MG TAB PO ONE (20:25)
[2018-04-03] MEDS ORDERED: KETOROLAC 30 MG/ML VIAL IM ONE (20:25)
--- NOTE | 2018-04-03 20:45 | NUR ---
PT BIB SELF C/O RT SIDED UPPER BACK PAIN AND NECK PAIN. PT STATES SHE HAD CHEMO INFUSION LAST WEEK TO RT CHEST PORTACATH AND AFTER INFUSION SHE STARTED HAVING PAIN. PT DENIES TRAUMA TO AREA, NO BRUISING, REDNESS, OR SWELLING NOTED. PT SITTING IN BED, COMFORT NEEDS MET AT THIS TIME. PMH HTN, ACTIVE SPINAL CANCER, HYPERLIPIDEMIA
[2018-04-03 21:37] LABS: APPEARANCE,URINE CLEAR (CLEAR); BILIRUBIN,URINE NEGATIVE (NEGATIVE); BLOOD, URINE NEGATIVE (NEGATIVE); LEUKOCYTE ESTERASE ,URINE TRACE (NEGATIVE); NITRITE, URINE NEGATIVE (NEGATIVE); UGLUCOSE NEGATIVE (NEGATIVE)
[2018-04-03 21:38] LABS: COLOR,URINE STRAW (YELLOW)
[2018-04-03 21:45] LABS: BASOPHILS % (AUTO) 0.6 % (0.0-2.0); EOSINOPHILS # (AUTO) 0.2 K/uL (0-0.4); EOSINOPHILS % (AUTO) 4.8 % (0.0-4.0); HEMATOCRIT 38.6 % (36-48); HEMOGLOBIN 12.7 g/dL (12.0-16.0); LYMPHOCYTES # (AUTO) 1.2 K/uL (2.5-16.5); LYMPHOCYTES % (AUTO) 24.7 % (20.5-51.1); MEAN CORPUSCULAR HEMOGLOBIN 29 pg (27-31); MEAN CORPUSCULAR HGB CONC 33 g/dL (33-37); MEAN CORPUSCULAR VOLUME 87.5 fL (80-94); MONOCYTES # (AUTO) 0.4 K/uL (0.8-1.0); NEUTROPHILS % (AUTO) 61.9 % (42.2-75.2); PLATELET COUNT (AUTO) 285 K/uL (140-450); RED BLOOD CELL COUNT(AUTO) 4.42 MIL/uL (4.20-5.40); RED CELL DISTRIBUTION WIDTH 14.8 % (11.6-13.7); WHITE BLOOD COUNT (AUTO) 4.8 K/uL (4.8-10.8)
[2018-04-03 21:58] LABS: RBC,URINE NONE SEEN /HPF (0-5); WBC,URINE 0-5 (RARE) /HPF (0-5)
[2018-04-03 22:08] LABS: ALBUMIN 3.8 g/dL (3.4-5.0); ANION GAP 9.2 (8-16); CARBON DIOXIDE 29.7 mmol/L (21-32); CREATININE 0.6 mg/dL (0.6-1.3); POTASSIUM 3.9 mmol/L (3.5-5.1); TOTAL BILIRUBIN 0.3 mg/dL (0.0-1.0)
[2018-04-03 23:49] VITALS: BP 131/90
--- NOTE | 2018-04-03 23:49 | NUR ---
Patient discharged with v/s stable. Written and verbal after care instructions given and explained. Patient verbalized understanding. Ambulatory with steady gait. All questions addressed prior to discharge. Advised to follow up with PMD.
== END 2018-04-03 23:50 | disposition home or self-care (01) ==
LOC: MED 20:01
DX: S16.1XXA Strain of muscle, fascia and tendon at neck level, initial encounter (principal); R07.89 Other chest pain; R10.32 Left lower quadrant pain; C50.919 Malignant neoplasm of unspecified site of unspecified female breast; C79.51 Secondary malignant neoplasm of bone; J45.909 Unspecified asthma, uncomplicated; E78.5 Hyperlipidemia, unspecified; Z92.21 Personal history of antineoplastic chemotherapy; Z88.2 Allergy status to sulfonamides; Z88.5 Allergy status to narcotic agent; Z79.899 Other long term (current) drug therapy; Z90.10 Acquired absence of unspecified breast and nipple; X58.XXXA Exposure to other specified factors, initial encounter; Y93.89 Activity, other specified; Y92.89 Other specified places as the place of occurrence of the external cause; Y99.8 Other external cause status
CPT/HCPCS: 36415; 74176; 76856; 80053; 81001; 81025; 84484; 85025; 85379; 96372; 99284; J1885; Q0092

== ENCOUNTER 2018-04-27 22:52 | Emergency (ER) | payer OTHER ==
[~2018-04-27] VITALS: Ht 157.5 cm; Wt 68.0 kg
[2018-04-27 23:11] VITALS: BP 122/94
--- NOTE | 2018-04-27 23:15 | NUR ---
43/F PRESENTS TO ED ACCOMPANIED BY SON AND DAUGHTER, C/O HIGH BLOOD PRESSURE (147/104), CAMPOS AND PRODUCTIVE COUGH X1 WEEK. PT REPORTS CHILLS, DENIES FEVER, AFEBRILE AT THIS TIME. PT AOX4, AMBULATORY, RR EVEN AND UNLABORED. LUNG SOUNDS CLEAR BL. HX HTN, HLD, DM, BREAST CA, SPINAL CA, L PARTIAL HYSTERECTOMY
[2018-04-28 00:40] VITALS: BP 130/88
--- NOTE | 2018-04-28 00:40 | NUR ---
Patient discharged with v/s stable. Written and verbal after care instructions given and explained. Patient alert, oriented and verbalized understanding of instructions. Ambulatory with steady gait. All questions addressed prior to discharge. ID band removed. Patient advised to follow up with PMD. Rx of PROMETHAZINE 6.25MG-15MG/5ML given. Patient educated on indication of medication including possible reaction and side effects. Opportunity to ask questions provided and answered.
== END 2018-04-28 00:40 | disposition home or self-care (01) ==
LOC: MED 22:52
DX: R05 Cough (principal); R03.0 Elevated blood-pressure reading, without diagnosis of hypertension; J45.909 Unspecified asthma, uncomplicated; Z85.3 Personal history of malignant neoplasm of breast; E11.9 Type 2 diabetes mellitus without complications; I10 Essential (primary) hypertension; E78.00 Pure hypercholesterolemia, unspecified; Z88.5 Allergy status to narcotic agent; Z88.2 Allergy status to sulfonamides; Z79.899 Other long term (current) drug therapy
CPT/HCPCS: 36415; 87804; 99283

== ENCOUNTER 2018-08-03 20:43 | Emergency (ER) | payer OTHER ==
[~2018-08-03] VITALS: Ht 157.5 cm; Wt 73.5 kg
--- NOTE | 2018-08-03 21:03 | NUR ---
PT AMBULATED TO [facility]. PROVIDED URINE.
[2018-08-03 21:10] VITALS: BP 128/78
--- NOTE | 2018-08-03 21:25 | NUR ---
NASAL SWAB DONE AND SENT TO LAB
--- NOTE | 2018-08-03 21:45 | NUR ---
PT AMBULATED TO BED 10
--- NOTE | 2018-08-03 22:00 | NUR ---
PT BIB SELF COUGH, RHINITIS AND LEFT ARM NUMBNESS/PAIN. PT STATES PRODUCTIVE COUGH, THIN YELLOW GREEN MUCOUS AND RHINITIS X2 DAYS. PT STATES LEFT ARM NUMBNESS AND RIGHT SHOULDER/RIGHT UPPER SHOULDER PAIN SINCE TODAY. +VOMITING, PT STATES EMESIS IS THIN CLEAR, AND AFTER EATING. PT STATES 8/10 DULL SHOULDER PAIN. DENIES TRAUMA. --NO VISIBLE DEFORMITIES TO LEFT ARM. LUNG SOUNDS CLEAR BL. ACTIVE BOWEL SOUND X4 QUAD. SPEECH CLEAR; HAND FAMILY READINESS SUPPORT ASSISTANT STRONG BL. PERRLA. MOIST MUCOUS MEMBRANES. PT ACTING APPROPRIATLY. AAOX4. PMH: CANCER, HYPERLIPIDEMIA, HTN RX: XGUEXA, PLAVIX, SIMVASTATIN
[2018-08-03] MEDS ORDERED: KETOROLAC 60 MG/2 ML VIAL IM ONE (22:40)
--- NOTE | 2018-08-03 23:25 | NUR ---
Patient discharged with v/s stable. Patient state she feels better and her pain has decreaded to 3/10 at this time. Patient acting appropriatly and ready to go home. Written and verbal after care instructions given and explained. Patient alert, oriented and verbalized understanding of instructions. Ambulatory with steady gait. All questions addressed prior to discharge. ID band removed. Patient advised to follow up with PMD. Rx of Prednisone, Zofran, and Motrin given. Patient educated on indication of medication including possible reaction and side effects. Opportunity to ask questions provided and answered.
[2018-08-04 00:01] VITALS: BP 109/74
== END 2018-08-03 23:25 | disposition home or self-care (01) ==
LOC: MED 20:43
DX: R50.9 Fever, unspecified (principal); R05 Cough; R11.2 Nausea with vomiting, unspecified; R52 Pain, unspecified; E11.9 Type 2 diabetes mellitus without complications; I10 Essential (primary) hypertension; J45.909 Unspecified asthma, uncomplicated; Z88.2 Allergy status to sulfonamides; Z88.5 Allergy status to narcotic agent; Z79.899 Other long term (current) drug therapy; Z85.3 Personal history of malignant neoplasm of breast; Z90.10 Acquired absence of unspecified breast and nipple; Z98.890 Other specified postprocedural states
CPT/HCPCS: 71046; 87804; 96372; 99284; J1885

== ENCOUNTER 2018-10-22 16:49 | Emergency (ER) | payer OTHER ==
[~2018-10-22] VITALS: Ht 157.5 cm; Wt 71.4 kg
[2018-10-22 16:57] VITALS: BP 129/84
--- NOTE | 2018-10-22 17:10 | NUR ---
BIB SELF. AAO X4, FULL CLEAR SPEECH C/O ANXIETY X 3 DAYS. PT IS SOB, O2 SAT 98% RA. PT DENEIS CHEST PAIN, N/V. PT STATES THAT SHE IS IN A LOT OF STRESS. HOB UP. BED SIDE RAILS UP X1. ON LOW BED POSITION, LOCKED. ER TO EVALUATE PT.
--- NOTE | 2018-10-22 18:13 | NUR ---
DR DALLAS AT BEDSIDE FOR PT EVALUATION
[2018-10-22] MEDS ORDERED: LORazepam 1 MG TAB PO ONE (18:15)
[2018-10-22] MEDS ORDERED: hydrOXYzine HCL 25 MG TAB PO ONE (18:15)
--- NOTE | 2018-10-22 18:41 | NUR ---
RADIOLOGY AT BEDSIDE
[2018-10-22 18:50] LABS: BASOPHILS # (AUTO) 0.1 K/uL (0.00-0.22); BASOPHILS % (AUTO) 0.9 % (0.0-2.0); EOSINOPHILS # (AUTO) 0.2 K/uL (0-0.4); EOSINOPHILS % (AUTO) 2.8 % (0.0-4.0); HEMATOCRIT 40.4 % (36-48); HEMOGLOBIN 13.3 g/dL (12.0-16.0); LYMPHOCYTES # (AUTO) 1.3 K/uL (2.5-16.5); LYMPHOCYTES % (AUTO) 22.1 % (20.5-51.1); MEAN CORPUSCULAR HEMOGLOBIN 29 pg (27-31); MEAN CORPUSCULAR HGB CONC 33 g/dL (33-37); MEAN CORPUSCULAR VOLUME 87.1 fL (80-94); MONOCYTES # (AUTO) 0.4 K/uL (0.8-1.0); MONOCYTES % (AUTO) 6.8 % (1.7-9.3); NEUTROPHILS # (AUTO) 4.1 K/uL (1.8-7.7); NEUTROPHILS % (AUTO) 67.4 % (42.2-75.2); PLATELET COUNT (AUTO) 331 K/uL (140-450); RED BLOOD CELL COUNT(AUTO) 4.64 MIL/uL (4.20-5.40)
--- NOTE | 2018-10-22 18:55 | NUR ---
UNABLE TO INITIATE IV X 2 AT THIS TIME.
--- NOTE | 2018-10-22 19:15 | NUR ---
Pt report given to KAITLYNN Fuller. Transfer of care at this time.
--- NOTE | 2018-10-22 19:15 | NUR ---
RECEIVED REPORT FROM KAITLYNN OWEN. ASSUMED CARE AT THIS TIME.
[2018-10-22 19:19] LABS: ANION GAP 14.1 (8-16); CARBON DIOXIDE 26.2 mmol/L (21-32); CREATININE 0.6 mg/dL (0.6-1.3); POTASSIUM 3.3 mmol/L (3.5-5.1)
[2018-10-22 19:20] LABS: PROTHROMBIN TIME 9.3 secs (10.8-13.4)
[2018-10-22 19:26] LABS: ALBUMIN 3.9 g/dL (3.4-5.0); TOTAL BILIRUBIN 0.3 mg/dL (0.0-1.0)
[2018-10-22 19:39] LABS: BARBITURATE, URINE NEG. ng/ml (NEG <=200); BENZODIAZEPINE, URINE NEG. ng/mL (NEG <=200); CANNABINOID, URINE NEG. ng/mL (NEG <=50); COCAINE, URINE NEG. ng/mL (NEG <=300); OPIATE, URINE NEG. ng/mL (NEG <=2000); PHENCYCLIDINE SCREEN,URINE NEG. ng/mL (NEG <=25)
--- NOTE | 2018-10-22 20:00 | NUR ---
PT VSS AT THIS TIME. PT VERBALIZED STILL FEELING ANXIOUS. PER PT "WORRIED ABOUT HER CANCER" AFTER MEETING WITH PRIMARY CARE PHYSICIAN THIS PAST WEEK.
[2018-10-22 20:45] VITALS: BP 148/93
== END 2018-10-22 20:45 | disposition home or self-care (01) ==
LOC: MED 16:49
DX: F41.0 Panic disorder [episodic paroxysmal anxiety] (principal); J45.909 Unspecified asthma, uncomplicated; E11.9 Type 2 diabetes mellitus without complications; I10 Essential (primary) hypertension; Z88.5 Allergy status to narcotic agent; Z88.2 Allergy status to sulfonamides; Z79.899 Other long term (current) drug therapy; Z85.3 Personal history of malignant neoplasm of breast
CPT/HCPCS: 36415; 71045; 80053; 80305; 81025; 83880; 84484; 85025; 85610; 85730; 93005; 99284; Q0092

== ENCOUNTER 2018-10-27 21:38 | Emergency (ER) | payer OTHER ==
[~2018-10-27] VITALS: Ht 157.5 cm; Wt 71.2 kg
[2018-10-27 21:40] VITALS: BP 142/90
--- NOTE | 2018-10-27 21:42 | NUR ---
TO LOBBY A/ W BED , AMBULATORY
--- NOTE | 2018-10-27 23:00 | NUR ---
DR. HUBBARD EVALUATING AT BEDSIDE.
--- NOTE | 2018-10-27 23:05 | NUR ---
43 YO F BIB SELF PRESENTS TO ED C/O ANXIETY S/SX X 1 WEEK. PT IS TEARFUL, STATING THAT SHE HAS BEEM STRESSED OUT WITH ISSUES AT HOME INVOLVING FAMILY. PT STATES SHE FEELS LIKE SHE CAN'T RELAX AND SHE HAS PRESSURE-LIKE DISCOMFORT TO HER CHEST AND BACK. PT STATES SHE SAW HER PMD TODAY AND RECEIVED RX FOR SERTRALINE AND ATIVAN. PT STATES THE RX HASN'T HELPED TODAY. -- PT APPEARS ANXIOUS, UPSET. COOPERATIVE. ANSWERING QUESTIONS APPROPRIATELY. -- SKIN PINK, WARM, DRY. BREATHING EVEN, UNLABORED. VSS. PMH-- SPINAL CANCER, REMISSION.
[2018-10-27] MEDS ORDERED: LORazepam 2 MG/ML VIAL IM ONE (23:15)
[2018-10-27] MEDS ORDERED: ONDANSETRON 4 MG ODT PO ONE (23:15)
--- NOTE | 2018-10-27 23:55 | NUR ---
PT STATES SHE FEELS BETTER. DENIES FEELINGS OF ANXIETY. DENIES PAIN AT THIS TIME. PT STATES SHE HAS FRIEND WAITING IN LOBBY TO DRIVE HER HOME.
--- NOTE | 2018-10-28 | NUR ---
Patient discharged with v/s stable. Written and verbal after care instructions given and explained. Patient verbalized understanding. Ambulatory with steady gait. All questions addressed prior to discharge. Advised to follow up with psychiatry or PMD within 1 day.
[2018-10-28 00:14] VITALS: BP 126/78
== END 2018-10-28 | disposition home or self-care (01) ==
LOC: MED 21:38
DX: F41.9 Anxiety disorder, unspecified (principal); J45.909 Unspecified asthma, uncomplicated; E78.5 Hyperlipidemia, unspecified; E11.9 Type 2 diabetes mellitus without complications; I10 Essential (primary) hypertension; Z85.848 Personal history of malignant neoplasm of other parts of nervous tissue; Z88.2 Allergy status to sulfonamides; Z88.5 Allergy status to narcotic agent; Z79.899 Other long term (current) drug therapy
CPT/HCPCS: 96372; 99284; J2060; Q0162

== ENCOUNTER 2018-12-26 16:02 | Emergency (ER) | payer OTHER ==
[~2018-12-26] VITALS: Ht 162.6 cm; Wt 59.0 kg
[2018-12-26 16:13] VITALS: BP 139/97
[2018-12-26 16:59] LABS: APPEARANCE,URINE CLEAR (CLEAR); BILIRUBIN,URINE NEGATIVE (NEGATIVE); BLOOD, URINE NEGATIVE (NEGATIVE); COLOR,URINE YELLOW (YELLOW); LEUKOCYTE ESTERASE ,URINE NEGATIVE (NEGATIVE); NITRITE, URINE NEGATIVE (NEGATIVE); PH,URINE 6.5 (5.0-9.0); UGLUCOSE NEGATIVE (NEGATIVE)
[2018-12-26] MEDS ORDERED: KETOROLAC 30 MG/ML VIAL IM ONE (17:15)
[2018-12-26] MEDS ORDERED: FAMOTIDINE 20 MG TAB PO ONE (17:15)
[2018-12-26] MEDS ORDERED: ASPIRIN 81 MG TAB.CHEW PO ONE (17:15)
[2018-12-26 18:04] LABS: BASOPHILS % (AUTO) 0.5 % (0.0-2.0); EOSINOPHILS # (AUTO) 0.2 K/uL (0-0.4); EOSINOPHILS % (AUTO) 3.6 % (0.0-4.0); HEMATOCRIT 37.9 % (36-48); HEMOGLOBIN 12.6 g/dL (12.0-16.0); LYMPHOCYTES # (AUTO) 1.3 K/uL (2.5-16.5); LYMPHOCYTES % (AUTO) 29.8 % (20.5-51.1); MEAN CORPUSCULAR HEMOGLOBIN 29 pg (27-31); MEAN CORPUSCULAR HGB CONC 33 g/dL (33-37); MEAN CORPUSCULAR VOLUME 86.7 fL (80-94); MONOCYTES # (AUTO) 0.3 K/uL (0.8-1.0); MONOCYTES % (AUTO) 7.3 % (1.7-9.3); NEUTROPHILS # (AUTO) 2.5 K/uL (1.8-7.7); NEUTROPHILS % (AUTO) 58.8 % (42.2-75.2); PLATELET COUNT (AUTO) 266 K/uL (140-450); RED BLOOD CELL COUNT(AUTO) 4.38 MIL/uL (4.20-5.40); WHITE BLOOD COUNT (AUTO) 4.2 K/uL (4.8-10.8)
[2018-12-26 18:15] LABS: ANION GAP 9.5 (8-16); CARBON DIOXIDE 31.3 mmol/L (21-32); CREATININE 0.7 mg/dL (0.6-1.3); POTASSIUM 3.8 mmol/L (3.5-5.1)
[2018-12-26 18:20] LABS: ALBUMIN 3.8 g/dL (3.4-5.0); TOTAL BILIRUBIN 0.4 mg/dL (0.0-1.0)
[2018-12-26 19:01] VITALS: BP 127/66
== END 2018-12-26 19:01 | disposition home or self-care (01) ==
LOC: MED 16:02
DX: R07.89 Other chest pain (principal); R03.0 Elevated blood-pressure reading, without diagnosis of hypertension; R06.02 Shortness of breath; R11.0 Nausea; J45.909 Unspecified asthma, uncomplicated; Z88.2 Allergy status to sulfonamides; Z88.5 Allergy status to narcotic agent; Z79.899 Other long term (current) drug therapy; Z85.3 Personal history of malignant neoplasm of breast; Z85.89 Personal history of malignant neoplasm of other organs and systems; Z90.12 Acquired absence of left breast and nipple
CPT/HCPCS: 36415; 71045; 80053; 81003; 84484; 85025; 93005; 96372; 99284; J1885; Q0092

== ENCOUNTER 2019-07-17 22:32 | Emergency (ER) | payer OTHER ==
[~2019-07-17] VITALS: Ht 157.5 cm; Wt 72.6 kg
[2019-07-17 22:35] VITALS: BP 111/80
--- NOTE | 2019-07-17 22:35 | NUR ---
to bed # 01 ambulatory
--- NOTE | 2019-07-17 22:57 | NUR ---
44 Y/O FEMALE PLACED IN BED 1 C/O DIZZINESS. PT HAS HX OF THIS WHEN ON CHEMO.
[2019-07-17] MEDS ORDERED: NACL 0.9% 1,000 ML IV SCH (23:07)
[2019-07-18 00:39] LABS: MONOCYTES # (AUTO) 0.2 K/uL (0.8-1.0); RED CELL DISTRIBUTION WIDTH 17.4 % (11.6-13.7)
[2019-07-18 00:42] LABS: BASOPHILS # (AUTO) 0.1 K/uL (0.00-0.22); BASOPHILS % (AUTO) 1.6 % (0.0-2.0); EOSINOPHILS % (AUTO) 0.8 % (0.0-4.0); HEMATOCRIT 41.7 % (36-48); HEMOGLOBIN 13.5 g/dL (12.0-16.0); LYMPHOCYTES # (AUTO) 0.5 K/uL (2.5-16.5); LYMPHOCYTES % (AUTO) 14.4 % (20.5-51.1); MEAN CORPUSCULAR HEMOGLOBIN 29 pg (27-31); MEAN CORPUSCULAR HGB CONC 32 g/dL (33-37); MEAN CORPUSCULAR VOLUME 90.1 fL (80-94); MONOCYTES % (AUTO) 6.7 % (1.7-9.3); NEUTROPHILS # (AUTO) 2.6 K/uL (1.8-7.7); NEUTROPHILS % (AUTO) 76.5 % (42.2-75.2); PLATELET COUNT (AUTO) 197 K/uL (140-450); RED BLOOD CELL COUNT(AUTO) 4.63 MIL/uL (4.20-5.40); WHITE BLOOD COUNT (AUTO) 3.4 K/uL (4.8-10.8)
[2019-07-18 00:53] LABS: ALBUMIN 2.7 g/dL (3.4-5.0); ANION GAP 9.9 (8-16); CARBON DIOXIDE 30.3 mmol/L (21-32); CREATININE 0.6 mg/dL (0.6-1.3); POTASSIUM 4.2 mmol/L (3.5-5.1); TOTAL BILIRUBIN 0.3 mg/dL (0.0-1.0)
[2019-07-18 00:58] LABS: PROTHROMBIN TIME 8.7 secs (10.8-13.4)
[2019-07-18 01:21] LABS: APPEARANCE,URINE CLEAR (CLEAR); BILIRUBIN,URINE NEGATIVE (NEGATIVE); BLOOD, URINE NEGATIVE (NEGATIVE); COLOR,URINE YELLOW (YELLOW); LEUKOCYTE ESTERASE ,URINE 1+ (NEGATIVE); NITRITE, URINE NEGATIVE (NEGATIVE); UGLUCOSE NEGATIVE (NEGATIVE)
[2019-07-18 01:34] LABS: RBC,URINE 0-5 /HPF (0-5)
[2019-07-18] MEDS ORDERED: LEVOFLOXACIN 500 MG/D5W PREMIX 100 ML IV ONE (02:00)
[2019-07-18] MEDS ORDERED: LEVOFLOXACIN 500 MG TAB PO ONE (02:55)
[2019-07-18 03:06] VITALS: BP 120/81
--- NOTE | 2019-07-19 10:36 | NUR ---
Late entry. Confirmed with RN that 0.9NS IV completed at 0230
== END 2019-07-18 04:03 | disposition home or self-care (01) ==
LOC: MED 22:32
DX: N39.0 Urinary tract infection, site not specified (principal); J45.909 Unspecified asthma, uncomplicated; Z85.3 Personal history of malignant neoplasm of breast; Z98.890 Other specified postprocedural states; Z88.6 Allergy status to analgesic agent; Z88.5 Allergy status to narcotic agent
CPT/HCPCS: 36415; 71045; 80053; 81001; 83605; 83880; 84484; 85025; 85610; 85730; 87040; 87086; 93005; 96360; 99285; J7030; Q0092